=== PATIENT | female | born 1940 | race Caucasian/White ===

== ENCOUNTER 2024-02-03 06:48 | Observation (INO) ==
--- NOTE | 2024-02-03 07:25 | Emergency Department Note ---
History of Present Illness General Chief complaint: Swelling/Edema to Extremity Stated complaint: SWELLING, POSS GOUT? Time Seen by Provider: 02/03/24 07:11 History of Present Illness Maximum Pain Intensity: 10 NAME: LETICIA QUEVEDO AGE: 83 SEX: F : 1940 ARRIVES VIA: Walk-In INFORMANT: Patient, Melanie ED PROVIDER(S): NIC Alvarado, Carissa Chandler MD The patient is a pleasant 83-year-old female who arrives to the emergency department for evaluation of right hand pain and swelling that started on Saturday. She reported crocheting on Saturday evening, and noticing her right hand began to hurt. She states she continues to bettie, then noticed the next morning the pain was worsening and she had swelling. She reports she thought she had tendinitis from crocheting. She states by Saturday the right hand was extremely painful, and swollen up to her elbow. She denies a history of gout, however she does report history of Lyme with multiple flares. She states her last Lyme flare was 45 years ago. She states no fever, numbness or tingling in the extremity, loss of sensation, or loss of strength. She states she has had no recent scratch, or bite. 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 She is afebrile, her vital signs are stable. Home Medications Medication Instructions Recorded Confirmed Type aspirin 81 mg capsule 81 mg PO DAILY 02/14/22 02/03/24 History amlodipine 5 mg tablet 5 mg PO DAILY #90 tabs 07/10/23 02/03/24 Rx metformin 500 mg tablet 500 mg PO DAILY #90 tabs 07/10/23 02/03/24 Rx valsartan 80 mg tablet 80 mg PO DAILY #90 tabs 07/10/23 02/03/24 Rx diclofenac potassium 50 mg tablet 50 mg PO DAILY #30 tabs 11/28/23 02/03/24 Rx levothyroxine 50 mcg capsule 50 mcg PO DAILY #90 caps 11/28/23 02/03/24 Rx Allergies Allergy/AdvReac Type Severity Reaction Status Date / Time No Known Allergies Allergy Mild Unverified 11/28/23 14:38 Past Med/Surg History Problem List (Updated 02/03/24 @ 19:31 by NIC Krueger) Pain of right hand Pain and swelling of right wrist (Acute) Chest pain Lyme arthritis Medical History (Updated 02/03/24 @ 19:31 by NIC Krueger) Situs inversus Hypothyroid Hypertension Diabetes Lyme disease Family History Daughter Breast cancer Father Pancreatic cancer Hypertension Mother Myocardial infarction Hypertension Heart disease Sister Breast cancer Hypertension Other Colorectal cancer Denies family history of Ovarian cancer Social History Smoking Status: Former smoker Tobacco Type: Cigarettes Age Started Using Tobacco: 20; Second Hand Exposure: Yes (has some exposure); Do You Dip or Chew Tobacco: No; Hx Alcohol Use: Yes Alcohol type: beer and wine Alcohol Intake Frequency: Monthly or Less Hx Substance Use: No Preferred Language: Kazakh Communication Ability: Effective Visual Impairment: Limited Hearing Ability: Normal marital status: / Current Living Situation: Alone current occupational status: retired How many Children do You have: 6 Feels Safe at Home: Yes Childhood Exposure to Second-Hand Smoke: Yes caffeine: Yes Dental Care, Regularly: No Physical Activity Frequency: Does not Exercise Seatbelt Use: always Sunscreen Use: No Physical Exam Vital Signs Vital Signs - 24 hr 02/03/24 06:54 02/03/24 07:19 02/03/24 07:30 Temperature 36.7 C Temperature Source Oral Pulse Rate 68 85 80 Pulse Rate from SpO2 Sensor Pulse Rhythm Respiratory Rate 20 15 Respiratory Effort / Characteristics Non-Labored Spontaneous Respiratory Depth Normal Blood Pressure 191/79 H 158/77 H Blood Pressure Mean 116 127 Pulse Oximetry 95 94 Oxygen Delivery Method Room Air Sepsis Recent Fever Within 48 Hours No Sepsis New/Unexplained Change in Mental Status N/A Sepsis Action Taken by Nursing No Action Required 02/03/24 07:44 02/03/24 08:00 02/03/24 08:30 Temperature Temperature Source Pulse Rate 75 76 73 Pulse Rate from SpO2 Sensor Pulse Rhythm Regular Respiratory Rate 20 20 18 Respiratory Effort / Characteristics Respiratory Depth Blood Pressure 155/74 H 148/73 H Blood Pressure Mean 109 100 Pulse Oximetry 96 94 93 Oxygen Delivery Method Room Air Sepsis Recent Fever Within 48 Hours Sepsis New/Unexplained Change in Mental Status Sepsis Action Taken by Nursing 02/03/24 09:00 02/03/24 09:30 02/03/24 10:49 Temperature Temperature Source Pulse Rate 74 68 70 Pulse Rate from SpO2 Sensor Pulse Rhythm Respiratory Rate 19 23 16 Respiratory Effort / Characteristics Respiratory Depth Blood Pressure 146/66 H 131/68 135/85 Blood Pressure Mean 106 108 101 Pulse Oximetry 93 94 98 Oxygen Delivery Method Room Air Sepsis Recent Fever Within 48 Hours Sepsis New/Unexplained Change in Mental Status Sepsis Action Taken by Nursing 02/03/24 11:18 02/03/24 11:33 02/03/24 11:57 Temperature Temperature Source Pulse Rate 69 67 63 Pulse Rate from SpO2 Sensor 68 67 63 Pulse Rhythm Respiratory Rate 20 14 18 Respiratory Effort / Characteristics Respiratory Depth Blood Pressure Blood Pressure Mean Pulse Oximetry 96 94 94 Oxygen Delivery Method Sepsis Recent Fever Within 48 Hours Sepsis New/Unexplained Change in Mental Status Sepsis Action Taken by Nursing 02/03/24 12:00 Temperature Temperature Source Pulse Rate 60 Pulse Rate from SpO2 Sensor 60 Pulse Rhythm Respiratory Rate 14 Respiratory Effort / Characteristics Respiratory Depth Blood Pressure 134/82 Blood Pressure Mean 99 Pulse Oximetry 94 Oxygen Delivery Method Sepsis Recent Fever Within 48 Hours Sepsis New/Unexplained Change in Mental Status Sepsis Action Taken by Nursing VITALS: Vitals are noted on the nurse's note and reviewed by myself. Vital signs stable. GENERAL: 83-year-old female, in no acute distress, nondiaphoretic, well- developed well-nourished. SKIN: Edema present to the right hand on the dorsum and palmar surface extending into the fingers. No erythema present, however, warmth. HEAD: Normocephalic atraumatic. HEART: Regular rate and rhythm without murmurs gallops or rubs. LUNGS: Clear to auscultation bilaterally without wheezes, rales or rhonchi. No retractions or accessory muscle use. MUSCULOSKELETAL: TTP right wrist, to elbow, yard engineer strength 5/5. Edema present to the distal extremity with no erythema. Capillary refill <3, limited ROM right wrist/elbow, due to pain. NEURO: Patient was alert and oriented to person place and time. No focal neurological deficits. Course Administered Medications Discontinued Medications Acetaminophen (Acetaminophen 500 Mg Tab) 1,000 mg PO NOW STA Stop: 02/03/24 07:26 Last Admin: 02/03/24 08:07 Dose: 1,000 mg Documented By: ANG Vancomycin HCl 1,500 mg/ (Sodium Chloride) 530 mls @ 200 mls/hr IV NOW ONE Stop: 02/03/24 14:29 Last Admin: 02/03/24 13:02 Dose: Not Given Documented By: RAIN Ceftriaxone Sodium (Rocephin) 2,000 mg in 50 mls @ 100 mls/hr IV NOW STA Stop: 02/03/24 13:01 Last Admin: 02/03/24 13:02 Dose: Not Given Documented By: RAIN Vancomycin HCl 1,750 mg/ (Sodium Chloride) 535 mls @ 200 mls/hr IV ONE STA Stop: 02/03/24 17:46 Last Admin: 02/03/24 15:39 Dose: 200 mls/hr Documented By: PAPITO Lorazepam 1 mg/ Syringe 1 mls @ 2 mls/min IV 1645 ONE Stop: 02/03/24 16:46 Last Admin: 02/03/24 17:04 Dose: 2 mls/min Documented By: ALBER Ketorolac Tromethamine (Ketorolac Tromethamine 15 Mg/Ml Vial) 10 mg IV NOW ONE Stop: 02/03/24 07:26 Last Admin: 02/03/24 08:06 Dose: 10 mg Documented By: CON Medical Decision Making Differential Diagnosis DVT, cellulitis, lymphatic obstruction, tickborne illness, gout, infection, as well as other pathologies. Medical Records Attestation: I reviewed the patient's medical records. Home Medications Current Medication List: was personally reviewed by me Laboratory Data Attestation: I reviewed the patient's lab results. CBC shows slight leukocytosis, stable hemoglobin and hematocrit, ,CMP unremarkable, Lyme positive for previous infection, Uric acid negative, ESR 72, CRP 7.47. 02/03/24 07:20 02/03/24 07:20 Lab Results 02/03/24 Range/Units 07:20 WBC 11.36 H (4.8-10.8) K/ul RBC 4.43 (4.20-5.40) M/uL Hgb 13.7 (12.0-16.0) g/dl Hct 41.1 (37.0-47.0) % MCV 92.8 (80.0-100.0) fL MCH 30.9 (25.0-34.0) pg MCHC 33.3 (32.0-36.0) g/dL RDW Std Deviation 42.8 (36.4-46.3) fL RDW Coeff of Augie 12.5 (11.5-14.5) % Plt Count 258 (130-400) K/uL MPV 11.4 (9.4-12.4) fL Immature Gran % (Auto) 0.3 % Neut % (Auto) 70.8 % Lymph % (Auto) 20.2 % [place] % (Auto) 7.9 % Eos % (Auto) 0.3 % Baso % (Auto) 0.5 % Neut # (Auto) 8.04 H (1.40-6.50) K/uL Lymph # (Auto) 2.30 (1.20-3.40) K/uL [place] # (Auto) 0.90 H (0.11-0.59) K/uL Eos # (Auto) 0.03 (0.00-0.50) K/uL Baso # (Auto) 0.06 (0.00-0.20) K/uL Immature Gran # (Auto) 0.03 (0.01-0.20) K/uL ESR 72 H (0-30) mm/hr Sodium 134 L (136-145) mmol/L Potassium 3.8 (3.5-5.1) mmol/L Chloride 101 (98-107) mmol/L Carbon Dioxide 26 (21-32) mmol/L Anion Gap 7 (3-11) BUN 11 (6-23) mg/dl Creatinine 0.51 L (0.6-1.2) mg/dl Est Cr Clr Drug Dosing 85.5 ml/min Est GFR ( Amer) 103.1 ml/min Est GFR (Non-Af Amer) 88.9 ml/min BUN/Creatinine Ratio 21.6 H (10-20) Glucose 170 H (70-99(Fasting)) mg/dl Uric Acid 2.9 (2.6-7.2) mg/dl Calcium 10.5 H (8.6-10.3) mg/dl Total Bilirubin 1.2 H (0.2-1.0) mg/dl AST 15 (13-39) U/L ALT 9 (7-52) U/L Alkaline Phosphatase 84 (34-104) U/L C-Reactive Protein 7.47 H (0-0.5) mg/dl Total Protein 7.9 (6.0-8.3) gm/dl Albumin 4.4 (3.4-5.0) gm/dl Globulin 3.5 (2.5-4.0) gm/dl Albumin/Globulin Ratio 1.3 (0.9-2) Lyme Disease Screen Positive H (Negative) Lyme Tier 2 IgG Confirm Positive H (Negative) Lyme Tier 2 IgM Confirm Negative (Negative) Imaging Data Attestation: I personally reviewed and interpreted this imaging study as follows: My Impression: Xray imaging per my interpretation shows soft tissue edema without acute fracture. Radiologist's Impression: Venous Doppler Study 02/03/24 07:25 RIGHT UPPER EXTREMITY VENOUS DOPPLER HISTORY: Right hand edema COMPARISON STUDY: None. FINDINGS: The right internal jugular vein is patent. There is normal flow within the right subclavian vein. There is normal flow and compressibility within the right axillary, basilic, brachial, radial, ulnar, and visualized cephalic veins. IMPRESSION: No DVT within the right upper extremity. ACT 112: Negative or not required by law. Electronically signed by: Anjum Regan M.D. 02/03/2024 10:42 AM Elbow X-Ray 02/03/24 10:27 XR elbow RT min 3V routine CLINICAL HISTORY: Right elbow pain following injury. COMPARISON: None FINDINGS: Alignment of the right elbow is anatomic. Anterior fat pad is slightly prominent. There is possible visualization of the posterior fat pad. No acute fracture is identified. A 1 cm lucent lesion with sclerotic margin within the right radial head has benign imaging characteristics. Ossific/calcific densities along the condyles are chronic. There is chondrocalcinosis within the right elbow with osteophytosis. IMPRESSION: No acute fractures identified however evidence for a possible joint effusion. This raises the possibility of an occult intra-articular fracture. Short-term follow-up right elbow radiographs are recommended. ACT 112: Negative or not required by law. Electronically signed by: Aiden Pritchard M.D. 02/03/2024 10:50 AM Wrist X-Ray 02/03/24 10:27 XR wrist RT min 3V routine CLINICAL HISTORY: Right wrist edema. COMPARISON STUDY: Right wrist 07/25/2011. FINDINGS: Soft tissue swelling within the right wrist. Chondrocalcinosis is noted. No acute fracture or dislocation within the right wrist. 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 Moderate osteoarthritis at the STT joint and mild osteoarthritis at the radiocarpal joint. The bones are osteopenic. Mild irregularity at the distal scaphoid favors an osteophyte. IMPRESSION: 1. Soft tissue swelling within the right wrist. 2. No acute fracture or dislocation. 3. Degenerative changes and chondrocalcinosis. ACT 112: Negative or not required by law. Electronically signed by: Anjum Regan M.D. 02/03/2024 11:08 AM Blood Pressure Blood Pressure Findings: Normal blood pressure MDM Narrative The patient is a pleasant well-appearing 83-year-old female who arrives to the emergency department for evaluation of the above-stated complaint. Upon examination the patient has significant edema with warmth present to the dorsal and palmar surface of the right hand extending into the wrist and into the digits. She reports the pain is significant which is worsened over time. She reports pain as well in her right elbow, with tenderness to palpation. Patient does report a history of a previous Lyme infection, with multiple flares over the last 4 to 5 years. A saline lock was established, CBC, CMP, Lyme, ESR, CRP, uric acid were obtained. CBC shows a slight leukocytosis, with a stable hemoglobin and hematocrit. CMP is unremarkable, ESR is elevated as well as CRP, Lyme is positive however IgM is negative. Patient was provided oral acetaminophen, as well as IV Toradol for pain. Upon reevaluation the patient reports a significant reduction in pain, and a slight reduction in edema. Ultrasound imaging of the right upper extremity was obtained to rule out DVT, which was negative. X-ray imaging of the right upper extremity is negative for acute fracture, or bony abnormality, however there is soft tissue edema present at the hand. Consultation with Dr. Simeon from orthopedics was obtained due to the likelihood of a septic joint. I spoke with case management to facilitate the admission process. Dr. Sequeira from the [facility] physician group agreed to accept the patient for admission. She will require IV antibiotics, however these will be delayed until after she is evaluated by orthopedics. Please refer to Dr. Sequeira's documentation for further patient care. Continuous school lunch monitor: Order was placed for continuous school lunch monitor. Patient was placed on the school lunch monitor. Patient was noted to be in normal sinus rhythm at an initial rate of 85 bpm. The patient's case was discussed with Dr. Chandler, who agreed with my evaluation and treatment plan. Impression & Plan Pain and swelling of right wrist Discharge Plan Visit Data Chief Complaint: Swelling/Edema to Extremity Stated Complaint: SWELLING, POSS GOUT? ED Provider: Carissa Chandler ED Midlevel Provider: Zenobia Bosch Discharge Problem: Pain and swelling of right wrist Patient Disposition: Admitted As Inpatient Discharge Instructions Interventions: ED Discharge Assessment Last Done: 02/03/24 17:48
[2024-02-03] MEDS: KETOROLAC TROMETHAMINE 15 MG/ML VIAL IV ONE (08:06)
[2024-02-03] MEDS: ACETAMINOPHEN 500 MG TAB PO STA (08:07)
[2024-02-03 08:47] LABS: Albumin Level 4.4 gm/dl (3.4-5.0); Bilirubin,Total 1.2 mg/dl (0.2-1.0); Calcium 10.5 mg/dl (8.6-10.3); Potassium 3.8 mmol/L (3.5-5.1)
[2024-02-03 08:54] LABS: Albumin Globulin Ratio 1.3 (0.9-2); BUN Creatinine Ratio 21.6 (10-20); Basophils # (auto) 0.06 K/uL (0.00-0.20); Basophils % (auto) 0.5 %; C Reactive Protein 7.47 mg/dl (0-0.5); Creatinine Clr Calc Pharmacy 85.5 ml/min; Eosinophils # (auto) 0.03 K/uL (0.00-0.50); Eosinophils % (auto) 0.3 %; Est GFR (African American) 103.1 ml/min; Est GFR (Non-African American) 88.9 ml/min; Globulin 3.5 gm/dl (2.5-4.0); Hematocrit (blood only) 41.1 % (37.0-47.0); Hemoglobin 13.7 g/dl (12.0-16.0); Immature Granulocytes # (auto) 0.03 K/uL (0.01-0.20); Immature Granulocytes % (auto) 0.3 %; Lymphocytes % (auto) 20.2 %; Mean Corpuscular Hemoglobin 30.9 pg (25.0-34.0); Mean Corpuscular Hgb Conc 33.3 g/dL (32.0-36.0); Mean Corpuscular Volume 92.8 fL (80.0-100.0); Mean Platelet Volume 11.4 fL (9.4-12.4); Monocytes % (auto) 7.9 %; Neutrophils # (auto) 8.04 K/uL (1.40-6.50); Neutrophils % (auto) 70.8 %; Platelet Count 258 K/uL (130-400); RDW Coefficient of Variation 12.5 % (11.5-14.5); RDW Standard Deviation 42.8 fL (36.4-46.3); Red Blood Count 4.43 M/uL (4.20-5.40); Total Protein 7.9 gm/dl (6.0-8.3); Uric Acid 2.9 mg/dl (2.6-7.2); White Blood Count 11.36 K/ul (4.8-10.8)
[2024-02-03 09:44] LABS: Lyme Screen Rflx Confirmation Positive (Negative)
[2024-02-03 10:19] LABS: Lyme Ab IgG 2nd Tier Confirm Positive (Negative); Lyme Ab IgM 2nd Tier Confirm Negative (Negative)
--- NOTE | 2024-02-03 10:43 | Ultrasound Report ---
RIGHT UPPER EXTREMITY VENOUS DOPPLER HISTORY: Right hand edema COMPARISON STUDY: None. FINDINGS: The right internal jugular vein is patent. There is normal flow within the right subclavian vein. There is normal flow and compressibility within the right axillary, basilic, brachial, radial, ulnar, and visualized cephalic veins. IMPRESSION: No DVT within the right upper extremity. ACT 112: Negative or not required by law. Electronically signed by: Anjum Regan M.D. 02/03/2024 10:42 AM
--- NOTE | 2024-02-03 10:52 | XRay Report ---
XR elbow RT min 3V routine CLINICAL HISTORY: Right elbow pain following injury. COMPARISON: None FINDINGS: Alignment of the right elbow is anatomic. Anterior fat pad is slightly prominent. There is possible visualization of the posterior fat pad. No acute fracture is identified. A 1 cm lucent lesi on with sclerotic margin within the right radial head has benign imaging characteristics. Ossific/tita cific densities along the condyles are chronic. There is chondrocalcinosis within the right elbow wit h osteophytosis. IMPRESSION: No acute fractures identified however evidence for a possible joint effusion. This raises the possibi lity of an occult intra-articular fracture. Short-term follow-up right elbow radiographs are recommen ded. ACT 112: Negative or not required by law. Electronically signed by: Aiden Pritchard M.D. 02/03/2024 10:50 AM
--- NOTE | 2024-02-03 11:11 | XRay Report ---
XR wrist RT min 3V routine CLINICAL HISTORY: Right wrist edema. COMPARISON STUDY: Right wrist 07/25/2011. FINDINGS: Soft tissue swelling within the right wrist. Chondrocalcinosis is noted. No acute fracture or dislocation within the right wrist. 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 Mode rate osteoarthritis at the STT joint and mild osteoarthritis at the radiocarpal joint. The bones are osteopenic. Mild irregularity at the distal scaphoid favors an osteophyte. IMPRESSION: 1. Soft tissue swelling within the right wrist. 2. No acute fracture or dislocation. 3. Degenerative changes and chondrocalcinosis. ACT 112: Negative or not required by law. Electronically signed by: Anjum Regan M.D. 02/03/2024 11:08 AM
[2024-02-03] MEDS ORDERED: VANCOMYCIN CONSULT ACTIVE PRN (11:51)
--- NOTE | 2024-02-03 12:02 | History & Physical Report ---
Date of Service February 03, 2024 Assessment & Plan (1) Pain and swelling of right wrist: Plan: Admit to [facility] Currently stable and nontoxic-appearing Presented to the ED today due to ongoing swelling/pain of the right wrist and hand with radiation to the right elbow since 01/28/2024 At this time the etiology of the patient's ongoing right wrist/hand pain with radiation to the right elbow is not entirely known differential includes overuse injury, infection, gout Patient has a mild leukocytosis but ESR and CRP are both elevated Denies recent trauma or damage to the skin overlying the areas of pain No recent fever/chills We have consulted orthopedics who is currently evaluating the patient, will hold antibiotics until speaking with him Will obtain blood cultures Pain control with Tylenol and morphine Bilateral SCD for DVT prophylaxis N.p.o. until we determine plans with. AM CBC, CMP, mag (2) Pain of right hand: Plan: See pain and swelling to right wrist (3) Hypertension: Plan: Currently stable Will plan to resume antihypertensives if she remains stable (4) Diabetes: Plan: Monitor BSG ACHS, goal is [id number] Hold metformin Will start correction factor of 50 ACHS for now she is not on insulin at home Adjust regimen as needed (5) Hypothyroid: Plan: Continue levothyroxine Plan The patient was discussed with Dr. Sequeira at the time of the admission History of Present Illness Chief Complaint: Right wrist/hand pain and swelling Primary Care Provider: Julián Thomas MD Ivis is a 83-year-old female with a past medical history significant for hypertension, hypothyroidism, DM type II, previous Lyme infection who presented to the [facility] ED on 02/03/2024 with complaints of right wrist/hand pain and swelling which began on 01/29/2024. She was noted to be hypertensive on arrival at 191/79, but otherwise stable. Labs were significant for a leukocytosis of 11 with neutrophil predominance of 8, ESR of 72, CRP of 7.47 with initial Lyme screen positive with Lyme IgG positive and Lyme IgM negative. Venous Doppler of the right upper extremity was read as negative for acute DVT. X-ray of the wrist noted soft tissue swelling within the right wrist, no acute fracture or dislocation, and degenerative changes with chondrocalcinosis. X-ray of the right elbow was read as negative for acute fractures identified however evidence of possible joint effusion. This raises the possibility of an acute intra-articular fracture. Short-term follow-up right elbow radiographs are recommended. Prior to admission the patient was given a dose of 10 mg IV Toradol, 1000 mg p.o. Tylenol. And ordered 1 dose of vancomycin. Patient was sitting in bed in no acute distress at the time of exam with her daughter sitting bedside, history is obtained from both. The patient explains that she had been crocheting on 01/28/2024 when she began to experience right wrist pain. She thought this may be due to tendinitis and continue to bettie as she wanted to finish a project. Starting on 01/29/2024 she noticed right wrist/hand swelling and increased pain. Since then the swelling/pain is increased and has subsequently progressed proximally to the right elbow. She presented to the ED today as she was having difficulty moving her right elbow, wrist, hand due to significant pain and swelling. Denies recent fever, chills, diaphoresis, chest pain, shortness of breath, cough, abdominal pain, nausea/vomiting, diarrhea, lower extremity swelling, pain/swelling in other joints or extremities, recent trauma/injuries, recent insect bites or rash. She denies current urinary symptoms but her daughter states that the patient had approximately 2 days of dysuria approximately 1 month ago which resolved after increasing her water intake and drinking cranberry juice. She confirms that she does have a previous history of Lyme infection. We discussed CODE STATUS, she explains that she would will be a conditional code. She would not want CPR or defibrillation in the event of cardiac arrest. In the event of respiratory failure she would want a trial of intubation and mechanical ventilation. She would want her 3 children to make decisions jointly if she cannot make decisions for self. Please refer to Dr. Sequeira's attestation for any changes to the treatment plan Allergies Allergy/AdvReac Type Severity Reaction Status Date / Time No Known Allergies Allergy Mild Unverified 11/28/23 14:38 Home Medications Medication Instructions Recorded Confirmed Type aspirin 81 mg capsule 81 mg PO DAILY 02/14/22 02/03/24 History amlodipine 5 mg tablet 5 mg PO DAILY #90 tabs 07/10/23 02/03/24 Rx metformin 500 mg tablet 500 mg PO DAILY #90 tabs 07/10/23 02/03/24 Rx valsartan 80 mg tablet 80 mg PO DAILY #90 tabs 07/10/23 02/03/24 Rx diclofenac potassium 50 mg tablet 50 mg PO DAILY #30 tabs 11/28/23 02/03/24 Rx levothyroxine 50 mcg capsule 50 mcg PO DAILY #90 caps 11/28/23 02/03/24 Rx Past Med/Surg History Problem List (Updated 02/03/24 @ 19:31 by NIC Krueger) Pain of right hand Pain and swelling of right wrist (Acute) Chest pain Lyme arthritis Medical History (Updated 02/03/24 @ 19:31 by NIC Krueger) Situs inversus Hypothyroid Hypertension Diabetes Lyme disease Family History Daughter Breast cancer Father Pancreatic cancer Hypertension Mother Myocardial infarction Hypertension Heart disease Sister Breast cancer Hypertension Other Colorectal cancer Denies family history of Ovarian cancer Social History Smoking Status: Never smoker Tobacco Type: Cigarettes Age Started Using Tobacco: 20; Second Hand Exposure: Yes (has some exposure); Do You Dip or Chew Tobacco: No; Hx Alcohol Use: Yes Alcohol type: beer and wine Alcohol Intake Frequency: Monthly or Less Hx Substance Use: No Preferred Language: [place] Communication Ability: Effective Visual Impairment: Limited Hearing Ability: Normal Examination Supervisor Required: No Beliefs That Will Affect Care: None marital status: / Current Living Situation: Alone current occupational status: retired How many Children do You have: 6 Feels Safe at Home: Yes Childhood Exposure to Second-Hand Smoke: Yes caffeine: Yes Dental Care, Regularly: No Physical Activity Frequency: Does not Exercise Seatbelt Use: always Sunscreen Use: No Assistive Devices: Denture - Upper and Glasses Physical Exam Physical Exam: Physical Exam: General: In no acute distress, stated age, well-nourished, non-toxic appearing HEENT: Normocephalic, atraumatic, no scleral icterus, pupils around round, symmetrical, and reactive to light, moist mucus membranes, trachea midline, no thyromegaly Chest/Pulm: No respiratory distress, symmetrical chest expansion, clear breath sounds throughout Cardiac: RRR, no murmurs noted Abdomen: Negative for ascites and bruising, normoactive bowel sounds, soft, non-tender to palpation throughout Musculoskeletal: Swelling noted in the right wrist/hand with significant pain on extension of the right wrist and fingers, pain radiates proximally into the right elbow >No trauma noted on inspection of the RUE >No pain on ROM testing or palpation of the right humerus and shoulder Extremities: Radial, dorsalis pedis, and posterior tibial pulses are intact and symmetrical, no edema noted in the BL LE's Skin: No erythema noted overlying the swelling of the right wrist/hand >Erythema noted on the lateral aspect of the right elbow without signs of recent trauma/skin integrity Neuro: Alert and oriented to person, place, month, year, and president, no focal defects, no tremors noted >No paresthesias or weakness in the RUE Psych: No acute distress, calm and cooperative during the exam Results & Data Results & Data Vital Signs (Past 12 Hours) Vital Signs Temp Pulse Resp BP Pulse Ox O2 Del Method 02/03/24 10:49 70 16 135/85 98 Room Air 02/03/24 09:30 68 23 131/68 94 02/03/24 09:00 74 19 146/66 H 93 02/03/24 08:30 73 18 148/73 H 93 02/03/24 08:00 76 20 155/74 H 94 02/03/24 07:44 75 20 96 Room Air 02/03/24 07:30 80 15 158/77 H 94 02/03/24 07:19 85 02/03/24 06:54 36.7 C 68 20 191/79 H 95 Room Air Laboratory Results Abnormal lab results 02/03/24 Range/Units 07:20 WBC 11.36 H (4.8-10.8) K/ul Neut # (Auto) 8.04 H (1.40-6.50) K/uL [place] # (Auto) 0.90 H (0.11-0.59) K/uL ESR 72 H (0-30) mm/hr Sodium 134 L (136-145) mmol/L Creatinine 0.51 L (0.6-1.2) mg/dl BUN/Creatinine Ratio 21.6 H (10-20) Glucose 170 H (70-99(Fasting)) mg/dl Calcium 10.5 H (8.6-10.3) mg/dl Total Bilirubin 1.2 H (0.2-1.0) mg/dl C-Reactive Protein 7.47 H (0-0.5) mg/dl Lyme Disease Screen Positive H (Negative) Lyme Tier 2 IgG Confirm Positive H (Negative) Diagnostic Findings Abnormal lab results 02/03/24 Range/Units 07:20 WBC 11.36 H (4.8-10.8) K/ul Neut # (Auto) 8.04 H (1.40-6.50) K/uL [place] # (Auto) 0.90 H (0.11-0.59) K/uL ESR 72 H (0-30) mm/hr Sodium 134 L (136-145) mmol/L Creatinine 0.51 L (0.6-1.2) mg/dl BUN/Creatinine Ratio 21.6 H (10-20) Glucose 170 H (70-99(Fasting)) mg/dl Calcium 10.5 H (8.6-10.3) mg/dl Total Bilirubin 1.2 H (0.2-1.0) mg/dl C-Reactive Protein 7.47 H (0-0.5) mg/dl Lyme Disease Screen Positive H (Negative) Lyme Tier 2 IgG Confirm Positive H (Negative) Medications Administered Venous Doppler Study 02/03/24 07:25 RIGHT UPPER EXTREMITY VENOUS DOPPLER HISTORY: Right hand edema COMPARISON STUDY: None. FINDINGS: The right internal jugular vein is patent. There is normal flow within the right subclavian vein. There is normal flow and compressibility within the right axillary, basilic, brachial, radial, ulnar, and visualized cephalic veins. IMPRESSION: No DVT within the right upper extremity. ACT 112: Negative or not required by law. Electronically signed by: Anjum Regan M.D. 02/03/2024 10:42 AM Elbow X-Ray 02/03/24 10:27 XR elbow RT min 3V routine CLINICAL HISTORY: Right elbow pain following injury. COMPARISON: None FINDINGS: Alignment of the right elbow is anatomic. Anterior fat pad is slightly prominent. There is possible visualization of the posterior fat pad. No acute fracture is identified. A 1 cm lucent lesion with sclerotic margin within the right radial head has benign imaging characteristics. Ossific/calcific densities along the condyles are chronic. There is chondrocalcinosis within the right elbow with osteophytosis. IMPRESSION: No acute fractures identified however evidence for a possible joint effusion. This raises the possibility of an occult intra-articular fracture. Short-term follow-up right elbow radiographs are recommended. ACT 112: Negative or not required by law. Electronically signed by: Aiden Pritchard M.D. 02/03/2024 10:50 AM Wrist X-Ray 02/03/24 10:27 XR wrist RT min 3V routine CLINICAL HISTORY: Right wrist edema. COMPARISON STUDY: Right wrist 07/25/2011. FINDINGS: Soft tissue swelling within the right wrist. Chondrocalcinosis is noted. No acute fracture or dislocation within the right wrist. 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 Moderate osteoarthritis at the STT joint and mild osteoarthritis at the radiocarpal joint. The bones are osteopenic. Mild irregularity at the distal scaphoid favors an osteophyte. IMPRESSION: 1. Soft tissue swelling within the right wrist. 2. No acute fracture or dislocation. 3. Degenerative changes and chondrocalcinosis. ACT 112: Negative or not required by law. Electronically signed by: Anjum Regan M.D. 02/03/2024 11:08 AM Code Status & VTE Plan Code Status Conditional; see HPI VTE Prophylaxis Plan VTE Prophylaxis will be ordered: Yes Supervising Physician Co-Signing Physician Notes Seen at the bedside. She reports that around 4 days ago she noticed soreness that started in her wrist or her hand, she is not sure which when she started crocheting. She did not have any injuries insect bites or other trauma to her hand or elbow preceding this. She continued to try to bettie but had increasing pain and swelling through the hand over the next 24 hours. She has had progressive pain and swelling of the hand and wrist most prominently in the index finger, which in the last day has spread into the forearm and into her elbow. She denies fevers chills and sweats. No rashes but has noticed redness swelling in hands. She has leukocytosis with neutrophilic predominance, and elevated CRP/ESR. Lyme testing is positive IgG, but negative IgM and she has a past history of Lyme disease with treatment. This is likely reflective of prior treated disease not acute disease/acute Lyme arthritis. ?R extensor synovitis vs septic arthritis versus overuse injury w/ leukocytosis, elevated inflammatory markers. - On exam right hydrator strength is intact with minimal pain, finger extension produces 10/10 pain radiating through the wrist . She has swelling of the hand more prominent on the dorsal aspect and most prominent in the index finger. Also has erythema and tenderness to palpation overlying the lateral right e picondyle. She has no tenderness to palpation of the forearm between the proximal wrist and elbow. - Orthopedics consulted. Appreciate recommendations. MRI of the hand and wrist pending. If indicative of infection will resume antibiotics, held on admit pending results History of Lyme disease Patient had neurologic Lyme several years ago, and was treated with 30 days of IV antibiotics at that time. She is unclear what abx this was. Lyme IgM is negative on admission. PG Care Time/CCT Total # of Minutes Spent Total Time Spent with Patient: Total time spent is greater than 50% in coordination of care (as documented) at patient's floor/unit and/or counseling patient: Coding [place] [address] INT INP/OBS CARE 2/55MIN Patient Type Established Medical Decision Making Moderate Complexity Diagnoses Pain and swelling of right wrist M25.531; M25.431 Pain of right hand M79.641 Hypertension I10 Diabetes E11.9 Hypothyroid E03.9
[2024-02-03] MEDS ORDERED: MoRPHine SULFATE 2 MG/ML CARP IV PRN (12:19)
[2024-02-03] MEDS ORDERED: ACETAMINOPHEN 325 MG TAB PO PRN (12:19)
[2024-02-03] MEDS ORDERED: CARBOHYDRATES FOR HYPOGLYCEMIA PO PRN (12:20)
[2024-02-03] MEDS ORDERED: DEXTROSE 50% 50 ML SYRINGE IV PRN (12:20)
[2024-02-03] MEDS ORDERED: GLUCOSE 40% GEL 15 GM TUBE PO PRN (12:20)
[2024-02-03] MEDS ORDERED: GLUCAGON FOR INJ 1 MG VIAL SQ PRN (12:20)
[2024-02-03] MEDS ORDERED: GLUCOSE 10 TAB/TUBE PO PRN (12:20)
[2024-02-03] MEDS: cefTRIAXone SODIUM 2,000 MG/50 ML BAG IV STA (13:02)
[2024-02-03] MEDS: VANCOMYCIN HCL 1,500 MG in SODIUM CHLORIDE 0.9% 500 ML IV ONE (13:02)
--- NOTE | 2024-02-03 13:49 | Orthopedic Consultation ---
Date of Consultation February 03, 2024 Assessment & Plan (1) Pain and swelling of right wrist: The patient was educated regarding today's findings. Her exam is not definitive for tenosynovitis or septic arthritis/septic joint. No warmth, discomfort, and level of swelling at this time is consistent with overuse/tendinitis. She has had significant improvement since this morning. MRI imaging is warranted for her hand and wrist to determine whether a deeper abscess or infectious tenosynovitis is present. Patient was placed in a Hu[place] dressing to assist with pain and edema control. She was encouraged to perform hand pumps to improve her range of motion and edema. IV antibiotics will be held for now. She does not require joint aspiration at this time. Possibility of gout effusion, Lyme effusion, infection, and arthritis exacerbation were all discussed with the patient and her daughter. We will continue to follow during her admission. The patient was seen in conjunction with Dr. Simeon, who also evaluated the patient and concurred with today's diagnosis and treatment plan. Supervising Physician Co-Signing Physician Notes I, Dr. Simeon, saw and examined the patient with my PA. I discussed the management with my PA. I reviewed my PAs note and agree with the documented findings and attest to completing the substantive portion (medical decision making)/ plan of care I developed. History of Present Illness Reason for Consultation: Right wrist and elbow pain and swelling Requesting Physician: Fadi Simeon MD Attending Physician: Luis Sequeira History of Present Illness This 83-year-old female with a history of Lyme arthritis, situs inversus, hypothyroidism, hypertension, and diabetes, seen today in the ED in consultation for right wrist and elbow pain. The patient states she was crocheting for the last 3 weeks, and was near the end of her project. On Saturday she had an extra long session of crocheting and started to develop right wrist and elbow discomfort. She awoke on Saturday with significantly worse pain. Pain has persisted throughout the week. She developed swelling in the hand that became severe. She had difficulty moving her fingers. She assumed it was tendinitis and that it would resolve on its own. Her daughter came to visit her this morning, and noticed her right hand was severely swollen. The patient was brought to the ED for evaluation. She denies any fevers, chills, sweats, nausea, or vomiting. There has been no treatment other than elevation. [id number]. No prior history of similar joint pain. She denies any history of gout. There was no trauma. She denies any open wounds on her hands or wrist. Allergies Allergy/AdvReac Type Severity Reaction Status Date / Time No Known Allergies Allergy Mild Unverified 11/28/23 14:38 Home Medications Medication Instructions Recorded Confirmed Type aspirin 81 mg capsule 81 mg PO DAILY 02/14/22 02/03/24 History amlodipine 5 mg tablet 5 mg PO DAILY #90 tabs 07/10/23 02/03/24 Rx metformin 500 mg tablet 500 mg PO DAILY #90 tabs 07/10/23 02/03/24 Rx valsartan 80 mg tablet 80 mg PO DAILY #90 tabs 07/10/23 02/03/24 Rx diclofenac potassium 50 mg tablet 50 mg PO DAILY #30 tabs 11/28/23 02/03/24 Rx levothyroxine 50 mcg capsule 50 mcg PO DAILY #90 caps 11/28/23 02/03/24 Rx Patient History Medical History (Updated 02/03/24 @ 13:45 by Abbe Bruno PA-C) Situs inversus Hypothyroid Hypertension Diabetes Lyme disease Family History Daughter Breast cancer Father Pancreatic cancer Hypertension Mother Myocardial infarction Hypertension Heart disease Sister Breast cancer Hypertension Other Colorectal cancer Denies family history of Ovarian cancer Social History Smoking Status: Former smoker Tobacco Type: Cigarettes Age Started Using Tobacco: 20; Second Hand Exposure: Yes (has some exposure); Do You Dip or Chew Tobacco: No; Hx Alcohol Use: Yes Alcohol type: beer and wine Alcohol Intake Frequency: Monthly or Less Hx Substance Use: No Preferred Language: [place] Communication Ability: Effective Visual Impairment: Limited Hearing Ability: Normal marital status: / Current Living Situation: Alone current occupational status: retired How many Children do You have: 6 Feels Safe at Home: Yes Childhood Exposure to Second-Hand Smoke: Yes caffeine: Yes Dental Care, Regularly: No Physical Activity Frequency: Does not Exercise Seatbelt Use: always Sunscreen Use: No Review of Systems Review of Systems: All systems reviewed & are unremarkable except as noted in HPI & below Physical Exam Physical Exam: General: Well-developed, well-nourished, elderly female, in no acute distress. Laying in bed. Alert and oriented. Skin: Warm and dry with fair turgor. She has edema present in the digits, dorsum of her hand, and wrist. It extends approximately 2 inches proximal to her wrist crease. There is mild ecchymosis throughout the hand on the dorsal surface. No erythema. Mild warmth. There is an erythemic [place] on the lateral portion of his right elbow. It is approximately 4 cm in diameter. It is tender to touch. No warmth. There is no appreciable effusion in the elbow. Musculoskeletal: Evaluation of the right arm reveals intact motor function of the digits for both flexion and extension. She is unable to make a full fist secondary to swelling. She has intact extension of the digits against resistance. Extension of the index finger does cause some pain at her MCP joint and to the dorsum of the hand. No discomfort at this time with extension of the rest of the digits. Thumb circumduction and opposition are intact. She is able to cross her fingers and oppose with the thumb. There is limited wrist motion secondary to swelling. She lacks approximately 20 degrees of extension as well as 20 degrees of flexion. Intact radial and ulnar deviation. She has full supination and pronation with some discomfort in the hand and wrist. There is focal pain with palpation over the dorsum of the wrist, specifically at the scapholunate interval. No pain with palpation over her forearm on the radial, dorsal, or volar surface. She does have focal pain with palpation over the extensor bundle origin as well as the flexor bundle origin. Minor discomfort with palpation over the triceps insertion. No pain over her olecranon. No pain over her radial head. She has full extension and full flexion of the elbow, though hyperflexion does cause some pain in the elbow. Supple motion of the shoulder. Neurologic: Gross sensation is intact across each of the digits of the right hand by soft touch. Radial, median, and ulnar nerve functions are intact for both motor and sensory. Normal Tinel's test at the wrist. Results & Data Vital Signs (Past 12 Hours) Vital Signs Temp Pulse Resp BP Pulse Ox O2 Del Method 02/03/24 12:24 63 22 94 02/03/24 12:00 60 14 134/82 94 02/03/24 11:57 63 18 94 02/03/24 11:33 67 14 94 02/03/24 11:18 69 20 96 02/03/24 10:49 70 16 135/85 98 Room Air 02/03/24 09:30 68 23 131/68 94 02/03/24 09:00 74 19 146/66 H 93 02/03/24 08:30 73 18 148/73 H 93 02/03/24 08:00 76 20 155/74 H 94 02/03/24 07:44 75 20 96 Room Air 02/03/24 07:30 80 15 158/77 H 94 02/03/24 07:19 85 02/03/24 06:54 36.7 C 68 20 191/79 H 95 Room Air Laboratory Results CBC obtained today shows a white count of 11.36. H&H of 13.7 and 41.1. Platelets are normal at 258,000. Sedimentation rate is elevated at 72. Normal electrolytes. Glucose is 170. Uric acid is normal at 2.9. C-reactive protein is significantly elevated at 7.47. Lyme disease screen is positive for IgG but negative for IgM. This is consistent with her history of an old infection. Diagnostic Findings Radiographic imaging obtained today of the wrist shows osteoarthritic changes with slight scapholunate widening. Basal joint arthritis is present. No acute fracture.
--- NOTE | 2024-02-03 14:03 | XRay Report ---
SINGLE VIEW CHEST CLINICAL HISTORY: Preoperative examination FINDINGS: An AP, portable, upright chest radiograph is compared to study dated 10/11/2011. There is ev idence of situs inversus, with the cardiac silhouette located on the right and a right-sided aortic a rch. The heart is top normal for projection. There is mild bibasilar scarring/atelectasis. The lungs and pleural spaces are otherwise clear. No pneumothorax is seen. The skeletal structures are osteopen ic. The bony thorax is grossly intact. IMPRESSION: 1. No active disease in the chest. 2. 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 See above. ACT 112: Negative or not required by law. Electronically signed by: Carlos Layton M.D. 02/03/2024 2:02 PM
[2024-02-03] MEDS: VANCOMYCIN HCL 1,750 MG in SODIUM CHLORIDE 0.9% 500 ML IV STA (15:39)
--- NOTE | 2024-02-03 16:49 | Electrocardiogram Report ---
Test Reason : Blood Pressure : */* mmHG Vent. Rate : 66 BPM Atrial Rate : 66 BPM P-R Int : 282 ms QRS Dur : 88 ms QT Int : 418 ms P-R-T Axes : 68 21 128 degrees QTcB Int : 438 ms Sinus rhythm with 1st degree A-V block Cannot rule out Inferior infarct , age undetermined Nonspecific ST abnormality Abnormal ECG No previous ECGs available Confirmed by Deepak Goldstein ([id number]) on 02/03/2024 4:49:29 PM Referred By: REFERRED SELF Confirmed By: Deepak Goldstein
[2024-02-03] MEDS: LORazepam 1 MG in SYRINGE 0.5 ML IV ONE (17:04)
--- NOTE | 2024-02-03 18:39 | Magnetic Resonance Report ---
MR hand RT wo/w con CLINICAL HISTORY: Right hand pain and swelling. Possible tenosynovitis. COMPARISON STUDY: Right wrist radiographs performed earlier today. TECHNIQUE: Utilizing a 1.5 Saadia magnet and dedicated coil, multiplanar, multiecho imaging of the rig ht hand was performed pre and postcontrast administration. Intravenous injection of 7 cc of Gadavist was uneventful. FINDINGS: This exam is mildly compromised by artifact. No fractures within the right hand are identif ied. There is no marrow edema to suggest acute osteomyelitis. 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 This is most pronounced at the right first carpo metacarpal joint. There are no fluid collections within the right hand. Note is made of moderate subc utaneous increased T2 signal within the dorsal soft tissues overlying the metacarpals and several fin gers. No increased fluid within the extensor or flexor tendon sheaths is identified. IMPRESSION: 1. Moderate subcutaneous increased T2 signal within the dorsal soft tissues overlying the metacarpals and several fingers. This could reflect edema or cellulitis. No rim-enhancing fluid collection to mclean ggest abscess. 2. No MRI evidence for tenosynovitis within the right hand. 3. 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 ACT 112: Negative or not required by law. Electronically signed by: Aiden Pritchard M.D. 02/03/2024 6:37 PM
[2024-02-03] MEDS: INSULIN ASPART PER UNIT CHARGE SC SCH (18:56)
[2024-02-03 19:20] VITALS: TEMP 97.7
--- NOTE | 2024-02-03 19:29 | Magnetic Resonance Report ---
MR wrist RT wo/w con CLINICAL HISTORY: possible tenosynovitis COMPARISON STUDY: Right wrist radiographs performed earlier today. TECHNIQUE: Utilizing a 1.5 Saadia magnet and dedicated coil, multiplanar, multi echo imaging of the ri ght wrist was performed pre and postcontrast administration. Intravenous injection of 7 cc of Gadavis t was uneventful. FINDINGS: This exam is mildly compromised by artifact. Alignment of the right wrist is anatomic. Ther e is increased fluid within the distal radioulnar joint. There is also adjacent subcutaneous fluid. T here is an ill-defined 1.3 x 0.7 cm T2 hyperintense focus within the peripheral enhancement overlying the dorsal aspect of the wrist shown on axial image 16 of 27. No marrow edema is identified to sugge st acute osteomyelitis within the right wrist. Several cystic lesions within the right carpal bones a re noted. The largest is a 7 mm lesion within the hamate. These are likely degenerative. Moderate ost eoarthritis within multiple articulations of the right wrist is noted. There is no increased fluid wi thin the tendon sheaths to suggest tenosynovitis by MRI. Note is made of a 1.4 x 1 x 0.9 cm ovoid enh ancing lesion of the right hand, along the medial aspect of the fifth metacarpal. Please note that th e MRI of the right hand will be reported separately. IMPRESSION: 1. No MRI evidence for tenosynovitis within the right wrist. 2. Ill-defined 1.3 x 0.7 cm T2 hyperintense focus with mild peripheral enhancement overlying the dors al aspect of the right wrist. A degenerative etiology is favored however phlegmon could appear simila r. No well-defined fluid collection to suggest abscess. 3. 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 Increased fluid within t he distal radioulnar joint. This is nonspecific but likely degenerative in etiology. 4. 1.4 x 1 x 0.9 cm ovoid enhancing lesion along the medial aspect of the right fifth metacarpal. Thi s is pathologically indeterminate although the appearance raises the possibility of a nerve sheath tu mor. ACT 112: Negative or not required by law. Electronically signed by: Aiden Pritchard M.D. 02/03/2024 7:27 PM
[2024-02-03] MEDS: amLODIPine BESYLATE 5 MG TAB PO ONE (19:51)
[2024-02-03] MEDS: VALSARTAN 80 MG TAB PO STA (19:51)
[2024-02-03] MEDS ORDERED: cefTRIAXone SODIUM 2,000 MG/50 ML BAG IV SCH (21:30)
[2024-02-04] MEDS: VANCOMYCIN HCL 1,000 MG in SODIUM CHLORIDE 0.9% 250 ML IV SCH (03:26)
[2024-02-04] MEDS: LEVOTHYROXINE SODIUM 50 MCG TABLET PO SCH (04:49)
[2024-02-04 07:15] VITALS: RESP 16
[2024-02-04] MEDS: VALSARTAN 80 MG TAB PO SCH (08:05)
[2024-02-04] MEDS: amLODIPine BESYLATE 5 MG TAB PO SCH (08:05)
[2024-02-04] MEDS: ASPIRIN 81 MG ECTAB PO SCH (08:05)
[2024-02-04 09:45] LABS: Basophils # (auto) 0.06 K/uL (0.00-0.20); Basophils % (auto) 0.8 %; Eosinophils # (auto) 0.19 K/uL (0.00-0.50); Eosinophils % (auto) 2.5 %; Hematocrit (blood only) 36.1 % (37.0-47.0); Hemoglobin 11.9 g/dl (12.0-16.0); Immature Granulocytes # (auto) 0.02 K/uL (0.01-0.20); Immature Granulocytes % (auto) 0.3 %; Lymphocytes # (auto) 1.75 K/uL (1.20-3.40); Lymphocytes % (auto) 23.5 %; Mean Corpuscular Hemoglobin 30.6 pg (25.0-34.0); Mean Corpuscular Volume 92.8 fL (80.0-100.0); Mean Platelet Volume 11.5 fL (9.4-12.4); Monocytes # (auto) 0.67 K/uL (0.11-0.59); Neutrophils # (auto) 4.77 K/uL (1.40-6.50); Neutrophils % (auto) 63.9 %; Platelet Count 248 K/uL (130-400); RDW Coefficient of Variation 12.6 % (11.5-14.5); RDW Standard Deviation 42.9 fL (36.4-46.3); Red Blood Count 3.89 M/uL (4.20-5.40); White Blood Count 7.46 K/ul (4.8-10.8)
[2024-02-04 10:05] LABS: Calcium 10.2 mg/dl (8.6-10.3); Creatinine Clr Calc Pharmacy 87.2 ml/min; Est GFR (African American) 103.7 ml/min; Est GFR (Non-African American) 89.5 ml/min; Magnesium 1.8 mg/dl (1.7-2.4); Potassium 4.4 mmol/L (3.5-5.1)
[2024-02-04 12:14] LABS: Estimated Average Glucose 151 mg/dl; Hemoglobin A1C 6.9 % (4.5-5.6)
[2024-02-04] MEDS: cefTRIAXone SODIUM 2,000 MG/50 ML BAG IV SCH (12:32)
--- NOTE | 2024-02-04 13:19 | Pharmacy Report ---
Pharmacy PK ABX Note - Date of Service February 04, 2024 - Assessment and Plan Assessment 83 year old F started on vancomycin and rocephin for potential elbow cellulitis. Hand MRI - concerns for cellulitis noted, negative abscess, negative tenosynovitis. Blood cultures pending. Per ortho, no plans for aspiration at this time. Plan Vancomycin * Loading dose: 1750 mg IV x 1 * Maintenance dose: 1000 mg IV every 12 hours * Regimen is predicted to achieve target AUC/MERCEDEZ of 400-600 mg/L.hr * Plan to order level if continued >48 hours Pharmacy will continue to follow and will adjust dose/frequency as necessary. Thank you. Pharmacy has transitioned to AUC monitoring for vancomycin. AUC/MERCEDEZ is the preferred PK/PD target and is associated with decreased risk of nephrotoxicity compared to traditional trough targets.
[2024-02-04 15:00] VITALS: BP 175/67; PULSE 61; O2SAT 100
--- NOTE | 2024-02-04 16:08 | Discharge Summary ---
Date of Service February 04, 2024 Admission HPI Per Admitting Provider Ivis is a 83-year-old female with a past medical history significant for hypertension, hypothyroidism, DM type II, previous Lyme infection who presented to the [facility] ED on 02/03/2024 with complaints of right wrist/hand pain and swelling which began on 01/29/2024. She was noted to be hypertensive on arrival at 191/79, but otherwise stable. Labs were significant for a leukocytosis of 11 with neutrophil predominance of 8, ESR of 72, CRP of 7.47 with initial Lyme screen positive with Lyme IgG positive and Lyme IgM negative. Venous Doppler of the right upper extremity was read as negative for acute DVT. X-ray of the wrist noted soft tissue swelling within the right wrist, no acute fracture or dislocation, and degenerative changes with chondrocalcinosis. X-ray of the right elbow was read as negative for acute fractures identified however evidence of possible joint effusion. This raises the possibility of an acute intra-articular fracture. Short-term follow-up right elbow radiographs are recommended. Prior to admission the patient was given a dose of 10 mg IV Toradol, 1000 mg p.o. Tylenol. And ordered 1 dose of vancomycin. Patient was sitting in bed in no acute distress at the time of exam with her daughter sitting bedside, history is obtained from both. The patient explains that she had been crocheting on 01/28/2024 when she began to experience right wrist pain. She thought this may be due to tendinitis and continue to bettie as she wanted to finish a project. Starting on 01/29/2024 she noticed right wrist/hand swelling and increased pain. Since then the swelling/pain is increased and has subsequently progressed proximally to the right elbow. She presented to the ED today as she was having difficulty moving her right elbow, wrist, hand due to significant pain and swelling. Denies recent fever, chills, diaphoresis, chest pain, shortness of breath, cough, abdominal pain, nausea/vomiting, diarrhea, lower extremity swelling, pain/swelling in other joints or extremities, recent trauma/injuries, recent insect bites or rash. She denies current urinary symptoms but her daughter states that the patient had approximately 2 days of dysuria approximately 1 month ago which resolved after increasing her water intake and drinking cranberry juice. She confirms that she does have a previous history of Lyme infection. We discussed CODE STATUS, she explains that she would will be a conditional code. She would not want CPR or defibrillation in the event of cardiac arrest. In the event of respiratory failure she would want a trial of intubation and mechanical ventilation. She would want her 3 children to make decisions jointly if she cannot make decisions for self. Please refer to Dr. Sequeira's attestation for any changes to the treatment plan Discharge Data Consultations 02/03/24 11:48 ED Decision to Admit Stat 02/03/24 12:22 Consult Orthopedic Surgery Routine Hospital Course (1) Pain and swelling of right wrist: Ivis is an 83-year-old female who presented to the ER for evaluation of pain and swelling at her right wrist. During admission she was noted to have significant pain on active extension of the right second and third digits that radiated into her wrist. Pain and swelling spared her forearm, but she was tender and erythematous overlying the right lateral epicondyle. Was evaluated by orthopedics and was noted to have an exam not definitive for tenosynovitis or septic arthritis/septic joint, was suspicious for overuse tendinitis in the hand but this does not explain her erythema at the elbow. On reevaluation had a second demarcated area of erythema at the elbow and was recommended for antibiotic treatment. Her MRI of the hand did not show any evidence of tenosynovitis. Overlying the right wrist degenerative etiology was favored however appearance could be consistent with phlegmon. No evidence of abscess. Nonspecific but likely degenerative radial ulnar joint fluid was noted. Ovoid lesion at the right fifth metacarpal suspicious for nerve sheath tumor was appreciated. Leukocytosis resolved the next day, hand and wrist pain improved with splint. Given her demarcated erythema x 2 at the elbow she was placed on antibiotics to cover for possible cellulitis. No abscess was appreciated, she was placed on cefdinir at discharge. She is scheduled for follow-up with orthopedics as outpatient and to complete a week of antibiotics. Compression sleeve provided to patient and placed on wrist by Ortho prior to discharge. To do as outpatient: 1. Complete 1 week of cefdinir 3 mg twice daily for cellulitis 2. Follow-up with orthopedics as outpatient for suspected overuse tendinitis 3. Routine PCP follow-up 4. Repeat CRP/CBC in 1 week to be drawn at PCP follow-up. This was discussed with patient prior to discharge Discharge exam patient remained with swelling in her right hand and fingers most prominent in the index finger, but improved from prior. Erythema at the lateral, boil improving and slightly receding compared to prior, second area of erythema was noted just medial to this. Lungs were clear to auscultation. Heart rate was regular. Patient was nontoxic-appearing. Total time spent day of discharge including reassessment, documentation, review of labs and images, and on direct care approximately 15 minutes. (2) Pain of right hand: (3) Hypertension: (4) Diabetes: (5) Hypothyroid: Coding Level of Care Code 45696 INP/OBS DISCH >30 MIN Diagnoses Pain and swelling of right wrist M25.531; M25.431 Pain of right hand M79.641 Hypertension I10 Diabetes E11.9 Hypothyroid E03.9
--- NOTE | 2024-02-04 19:55 | Orthopedic Progress Note ---
Date of Service February 04, 2024 Assessment & Plan (1) Cellulitis of elbow: Plan: The patient and her daughter were educated regarding today's findings. Conservative care measures were discussed. Her hand and wrist edema have almost entirely resolved. MRI imaging from yesterday was reviewed. She has no evidence of deep abscess, infectious tenosynovitis, or fracture. Possibility of inflammatory changes along with arthritic changes is suggested. This was d iscussed with the patient. She has remained afebrile. She has a normal white count. I am puzzled and concerned about the erythemic area on her elbow. She may have a mild cellulitis. Redness has increased and is now slightly warm. I do not suspect joint involvement as her motion is good and does not cause pain. Option of treatment with oral antibiotics was discussed. She would like to go home. Oral treatment would allow her to be discharged. The patient is in agreement. I will speak with the hospitalist team regarding oral antibiotic coverage and sending a prescription. Would like the patient in Tubigrip compression to prevent further edema of the hand and forearm. She is in agreement. Will be obtained from our office as there is not likely any in the hospital. I will speak with the medicine team regarding discharge follow-up in the office in a week as scheduled. Admission and Anticipated Discharge Date Admission Date: February 03, 2024 Subjective This 83-year-old female is seen today in her room. Her daughter is present at bedside. Her Huerta wrap on the right wrist is no longer present. The patient states she just removed it herself 1/2-hour ago. She was curious about swelling in her hand. She denies any fevers or chills. She states the hand is significantly improved. She is able to move her fingers better. States that the swelling in her hand has gone down significantly. She continues to have a sore spot at her elbow. She notes that is also red and is larger than yesterday. No numbness or tingling. No other complaints. Physical Exam Physical Exam: General: Well-developed, well-nourished, elderly female, in no acute distress. Laying in bed. Alert and oriented. Skin: Warm and dry with fair turgor. There is noticeably less edema present in her fingers and dorsum of her hand and wrist. It is almost entirely returned to normal. There is no warmth. The previous ecchymosis has also resolved. There is an erythemic seneca on the lateral portion of his right elbow. It is approximately 5 cm in diameter. It continues to be tender to touch. Mild warmth. There is no appreciable effusion in the elbow. Musculoskeletal: Evaluation of the right arm reveals intact motor function of the digits for both flexion and extension. She is now able to make a fist. She has intact extension of the digits against resistance. Extension of the index finger continues to cause some pain at her MCP joint. No discomfort at this time with extension of the rest of the digits. Thumb circumduction and opposition are intact. She is able to cross her fingers and oppose with the thumb. There is essentially normal wrist motion. Intact radial and ulnar deviation. She has full supination and pronation with some discomfort in the hand and wrist. There is mild pain with palpation over the dorsum of the wrist, specifically at the scapholunate interval. No pain with palpation over her forearm on the radial, dorsal, or volar surface. She does have focal pain with palpation over the extensor bundle origin. Minor discomfort with palpation over the triceps insertion continues. No pain over her olecranon. No pain over her radial head. She has full extension and full flexion of the elbow, though hyperflexion does cause some pain in the elbow. Supple motion of the shoulder. Neurologic: Gross sensation is intact across each of the digits of the right hand by soft touch. Radial, median, and ulnar nerve functions are intact for both motor and sensory. Normal Tinel's test at the wrist. Results & Data Vital Signs (Past 12 Hours) Vital Signs Temp Pulse Resp BP Pulse Ox O2 Del Method 02/04/24 14:59 36.5 C 61 16 175/67 H 100 Room Air Laboratory Results CBC obtained this morning shows a white count of 7.46. H&H of 11.9 and 36.1. Platelets 248,000. Normal electrolytes. Normal BUN and creatinine. Glucose 162 this morning.
== END 2024-02-04 18:20 | disposition home or self-care (01) | DRG 603 ==
LOC: ED 06:48 → INTOOBSV 12:18 → EDINP 12:18 → OBSVTOIN 12:18 → 3W 17:48